=== PATIENT | male | born 2000 | race Caucasian/White ===

== ENCOUNTER 2022-12-13 13:24 | Emergency (ER) | payer BC, SELFPAY ==
[2022-12-13 13:28] VITALS: BP 164/89; PULSE 80; RESP 18; TEMP 37.1; O2SAT 100; BMI 28.4
--- NOTE | 2022-12-13 14:11 | ED_ITS ---
HPI - Animal Bite General Date Seen: 12/13/22 Chief Complaint: Animal Bite Stated Complaint: Dog bit R leg Time Seen by Provider: 12/13/22 13:24 Source: patient and family Mode of arrival: ambulatory Limitations: no limitations History of Present Illness HPI narrative: Patient is a very fit 22-year-old gentleman who was out biking, when a dog ran out from a farm and bit him on the right calf region. This occurred approximately 1 hour ago, since then they found out from the police in [place] that the dog is fully vaccinated, they have come in to see if there is any issues associated with this. He has never before had rabies vaccinations, immunizations are otherwise up-to-date, he is on no chronic medications, he just had sutures placed on the left knee recently. complaint: animal bite Onset (ago): hour(s) Animal: dog Description of animal: household pet, immunizations UTD and appeared well Mechanism: bite Location: other Location - Extremities: Right: lower leg Pain description: sharp Severity: mild Context: unprovoked Associated symptoms: none Treatments prior to arrival: wound dressing(s) Related Data Patient tetanus UTD: Yes Home Medications Medication Instructions Recorded Confirmed sertraline 50 mg tablet mg PO 12/13/22 testosterone cypionate 200 mg/mL 200 mg IM Q2W 12/13/22 12/13/22 intramuscular oil Allergies Allergy/AdvReac Type Severity Reaction Status Date / Time No Known Drug Allergies Allergy Verified 12/13/22 13:31 Review of Systems Status of ROS: Reports: 6 or more systems reviewed and unremarkable except as noted in History and below PFSH PFSH Social History Smoking Status: Never smoker How often do you have a drink containing alcohol: never AUDIT-C Alcohol total score: 0 Exam Narrative: Exam Narrative: On examination there is a bite on his right lateral calf, 2 puncture wounds and then more of a scrape of the other remaining 4 teeth. Good flexion extension of his foot. No significant bruising, and nothing suturable. Const: Vital Signs, click to edit/add: Vital Signs - 24 hr 12/13/22 13:28 Temperature 98.7 F Pulse Rate [Right Pulse Oximeter] 80 Respiratory Rate 18 Blood Pressure [Ri ght Upper Arm] 164/89 H Pulse Oximetry 100 Oxygen Delivery Me thod Room Air Documenting provider has reviewed patient's vital signs: yes Course Course Hospital Course: I discussed with this is low risk for rabies given that is dog and the dog is vaccinated, I would not suture this, given the scrapes in the puncture rooms, we will put him on prophylactic antibiotics for this, we cleaned it out here, bacitracin and a dry dressing was applied and that should be probably continued in the future. For the next 6-7 days, signs of infection are discussed in detail, he should follow up if these occur. Vital Signs Vital signs: Initial Vital Signs Temperature 98.7 F 12/13/22 13:28 Temperature Source Temporal Artery Scan 12/13/22 13:28 Pulse Rate 80 12/13/22 13:28 Respiratory Rate 18 12/13/22 13:28 Blood Pressure 164/89 H 12/13/22 13:28 Blood Pressure Mean 114 H 12/13/22 13:28 Blood Pressure Position Sitting 12/13/22 13:28 Pulse Oximetry 100 12/13/22 13:28 Oxygen Delivery Method Room Air 12/13/22 13:28 Vital Signs Temperature 98.7 F 12/13/22 13:28 Pulse Rate 80 12/13/22 13:28 Respiratory Rate 18 12/13/22 13:28 Blood Pressure 164/89 H 12/13/22 13:28 Pulse Oximetry 100 12/13/22 13:28 Oxygen Delivery Method Room Air 12/13/22 13:28 Temperature 98.7 F 12/13/22 13:28 Pulse Rate 80 12/13/22 13:28 Respiratory Rate 18 12/13/22 13:28 Blood Pressure 164/89 H 12/13/22 13:28 Pulse Oximetry 100 12/13/22 13:28 Oxygen Delivery Method Room Air 12/13/22 13:28 MDM - Animal Bite Differential Diagnosis Differential diagnosis: Likely bite by animal, cat bite, dog bite and rabies contact Discharge Plan Discharge Clinical Impression: Dog bite Patient Disposition: Home w/ Parent or Adult Condition: Stable Instructions: Animal Bite (ED), Rabies (ED) Additional Instructions: Given the dogs credit shots it is unlikely that any exposure to rabies has occurred, but I did print you some information on this. I recommend taking antibiotics applying bacitracin to the wound, avoidance of [place], showering should be encouraged, it likely will bruise up, but leaving it open should be better than closing it. Activity Level: No Restrictions Prescriptions: No Action testosterone cypionate 200 mg/mL oil 200 mg IM Q2W sertraline 50 mg tablet PO Follow Up/Referrals: Provider,Not a Local [Referring] - Stand Alone Forms: Roomster Info Instructions
== END 2022-12-13 13:52 | disposition home or self-care (01) ==
LOC: ED 13:47
PROVIDERS: Emergency Provider Family Medicine; PCP Family Medicine
DX: S81.851A Open bite, right lower leg, initial encounter (principal); W54.0XXA Bitten by dog, initial encounter
CPT/HCPCS: 99282; 99283